=== PATIENT | male | born 1945 | race Caucasian/White ===

== ENCOUNTER 2018-04-29 12:48 | Inpatient (IN) | payer MEDICARE, OTHER ==
--- NOTE | 2018-04-29 15:15 | PCM.HP ---
H&P History of Present Illness - General Date of Service: 04/29/18 Source of Information: Patient - History of Present Illness Initial Comments - Free Text/Narative: 73-year-old male with a past medical history of metastatic castrate resistant prostate cancer, obesity, obstructive sleep apnea, hypertension, hyperlipidemia who was admitted with hypoxia and fever on 04/11/2018 been managed for PCP pneumonia with Bactrim and steroids. He was transferred out of the ICU on 2017. Patient was evaluated by infectious disease team, nephrology and oncology. Gradually his kidney function has improved. Patient was on Bactrim but that was discontinued. He was started on clindamycin and primaquine combination for PCP pneumonia. At this time the patient offers no new complaints. He feels well. Still weak. No significant cough at this time No fever exercise tolerance is improving. - Related Data Allergies/Adverse Reactions: Allergies Allergy/AdvReac Type Severity Reaction Status Date / Time No Known Allergies Allergy Verified 04/29/18 12:38 Home Medications: Home Meds Aspirin [Ecotrin] 1 tab PO BEDTIME 08/23/14 [History] Losartan [Cozaar] 100 mg PO DAILY 08/23/14 [History] Lovastatin [Mevacor] 20 mg PO BEDTIME 08/23/14 [History] amLODIPine Besylate [Amlodipine Besylate] 2 tab PO DAILY 08/23/14 [History] Leuprolide [Lupron Depot 4-Month] 30 mg IM .EVERY 4 MONTHS 08/24/14 [History] Multivitamin [Men's Multi-Vitamin] 1 each PO DAILY 08/24/14 [History] Ascorbic Acid 500 mg PO DAILY 04/29/18 [History] Clindamycin HCl 600 mg PO TID 04/29/18 [History] LORazepam 0.5 mg PO BEDTIME PRN 04/29/18 [History] Methylcellulose (with Sugar) [Citrucel] 1 dose PO DAILY PRN 04/29/18 [History] Non-Formulary Medication [NF Drug] 1 tab PO BID 04/29/18 [History] Non-Formulary Medication [NF Drug] 2 tab PO DAILY 04/29/18 [History] Omeprazole 20 mg PO BIDAC 04/29/18 [History] Ondansetron HCl [Zofran] 8 mg PO Q8HR PRN 04/29/18 [History] Prochlorperazine [Compazine] 10 mg PO Q6H PRN 04/29/18 [History] predniSONE [Prednisone] 20 mg PO DAILY 04/29/18 [History] Past Medical History Cardiovascular History: Reports: Hypertension Genitourinary History: Reports: Other (See Below) Other Genitourinary History: Prostate Surgery Musculoskeletal History: Reports: Arthritis, Other (See Below) Other Musculoskeletal History: spinal fusion in 1960 Psychiatric History: Reports: Anxiety Oncologic (Cancer) History: Reports: Metastatic, Prostate Other Oncologic History: last chemo was friday last week,. - Infectious Disease History Infectious Disease History: Reports: Chicken Pox, Measles, Mumps Social & Family History - Family History Family Medical History: Unobtainable - Tobacco Use Smoking Status *Q: Never Smoker Second Hand Smoke Exposure: No - Recreational Drug Use Recreational Drug Use: No H&P Review of Systems - Review of Systems: Review Of Systems: See Below General: Reports: Weakness, Decreased Appetite HEENT: Reports: No Symptoms Pulmonary: Reports: No Symptoms Cardiovascular: Reports: No Symptoms Gastrointestinal: Reports: No Symptoms Skin: Reports: No Symptoms Exam - Exam Exam: See Below - Vital Signs Vital Signs: Last Vital Signs Temp 36.2 C 04/29/18 14:40 Pulse 82 04/29/18 14:40 Resp 18 04/29/18 14:40 BP 99/62 04/29/18 14:40 Pulse Ox 93 L 04/29/18 14:40 Weight: 84.55 kg - Exam General: Alert, Oriented, 4 HEENT: PERRLA, Hearing Intact, Mucosa Moist & [place], Nares Patent, Normal Nasal Septum, Posterior Pharynx Clear, Conjunctiva Clear, EOMI, EACs Clear, TMs Clear Neck: Supple, Trachea Midline, 2 Lungs: Clear to Auscultation, Normal Respiratory Effort Cardiovascular: Regular Rate, Regular Rhythm Back Exam: Normal Inspection, Full Range of Motion, NT Extremities: Normal Inspection, Normal Range of Motion, Non-Tender, No Pedal Edema, Normal Capillary Refill Problem List Initiated/Reviewed/Updated: Yes Assessment/Plan Comment:: #EDGARDO, improving -Creatinine is down to 1.2 -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 Bactrim discontinued, substitute with Clindamycin + Primaquine -Nephrology consult appreciated #Hyponatremia, improving -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
[2018-04-29] MEDS ORDERED: Ondansetron 4 MG Tab.DIS PO PRN (15:17)
[2018-04-29] MEDS ORDERED: Acetaminophen 325 MG Tab PO PRN (15:17)
[2018-04-29] MEDS ORDERED: LORazepam 0.5 MG Tab PO PRN (15:21)
[2018-04-29] MEDS ORDERED: [UNRECOGNIZED DRUG - OTHER] PO PRN (15:21)
[2018-04-29] MEDS ORDERED: METHYLCELLULOSE PO PRN (15:21)
[2018-04-29] MEDS ORDERED: Prochlorperazine 5 MG Tab PO PRN (16:45)
[2018-04-29] MEDS: Omeprazole 20 MG Cap.CR PO SCH (17:25)
[2018-04-29] MEDS: Aspirin 81 MG Tab.EC PO SCH (22:47)
[2018-04-29] MEDS: Clindamycin HCl 150 MG Cap PO SCH (22:48)
[2018-04-29] MEDS: Heparin Sodium 5,000 Units/ML Vial SUBCUT SCH (22:48)
[2018-04-29] MEDS: Nystatin Topical Powder 30 GM Bottle TOP SCH (22:49)
[2018-04-30] MEDS: Omeprazole 20 MG Cap.CR PO SCH ×2 (05:45→17:16)
[2018-04-30] MEDS: Heparin Sodium 5,000 Units/ML Vial SUBCUT SCH ×3 (05:46→21:56)
[2018-04-30 07:13] LABS: CHLORIDE,CL 109 mmol/L (101-111); SODIUM,NA 137 mmol/L (135-145)
[2018-04-30] MEDS: Ascorbic Acid 500 MG Tab PO SCH (09:08)
[2018-04-30] MEDS: Losartan 50 MG Tab PO SCH (09:08)
[2018-04-30] MEDS: predniSONE 20 MG Tab PO SCH (09:08)
[2018-04-30] MEDS: amLODIPine 5 MG Tab PO SCH (09:09)
[2018-04-30] MEDS: Multivitamins,Therapeutic Tab PO SCH (09:09)
[2018-04-30] MEDS: Clindamycin HCl 150 MG Cap PO SCH ×3 (09:09→21:55)
[2018-04-30] MEDS: Nystatin Topical Powder 30 GM Bottle TOP SCH ×2 (09:11→22:00)
[2018-04-30] MEDS: [UNRECOGNIZED DRUG - REMARK] PO SCH (14:19)
[2018-04-30] MEDS: Aspirin 81 MG Tab.EC PO SCH (21:56)
[2018-04-30] MEDS: Zolpidem 5 MG Tab PO PRN (22:38)
[2018-05-01] MEDS: Heparin Sodium 5,000 Units/ML Vial SUBCUT SCH ×3 (06:37→21:43)
[2018-05-01] MEDS: Omeprazole 20 MG Cap.CR PO SCH ×2 (06:37→16:15)
[2018-05-01] MEDS: Nystatin Topical Powder 30 GM Bottle TOP SCH ×2 (08:43→21:44)
[2018-05-01] MEDS: Multivitamins,Therapeutic Tab PO SCH (08:43)
[2018-05-01] MEDS: [UNRECOGNIZED DRUG - REMARK] PO SCH (08:43)
[2018-05-01] MEDS: predniSONE 20 MG Tab PO SCH (08:43)
[2018-05-01] MEDS: amLODIPine 5 MG Tab PO SCH (08:44)
[2018-05-01] MEDS: Losartan 50 MG Tab PO SCH (08:44)
[2018-05-01] MEDS: Clindamycin HCl 150 MG Cap PO SCH ×3 (08:44→21:43)
[2018-05-01] MEDS: Ascorbic Acid 500 MG Tab PO SCH (08:44)
[2018-05-01] MEDS: Zolpidem 5 MG Tab PO PRN (21:43)
[2018-05-01] MEDS: Aspirin 81 MG Tab.EC PO SCH (21:43)
[2018-05-02] MEDS: Heparin Sodium 5,000 Units/ML Vial SUBCUT SCH ×3 (06:15→21:48)
[2018-05-02] MEDS: Omeprazole 20 MG Cap.CR PO SCH ×2 (06:15→16:27)
[2018-05-02] MEDS: amLODIPine 5 MG Tab PO SCH (09:44)
[2018-05-02] MEDS: Clindamycin HCl 150 MG Cap PO SCH ×3 (09:44→21:49)
[2018-05-02] MEDS: Losartan 50 MG Tab PO SCH (09:45)
[2018-05-02] MEDS: predniSONE 20 MG Tab PO SCH (09:45)
[2018-05-02] MEDS: Ascorbic Acid 500 MG Tab PO SCH (09:45)
[2018-05-02] MEDS: Multivitamins,Therapeutic Tab PO SCH (09:45)
[2018-05-02] MEDS: [UNRECOGNIZED DRUG - REMARK] PO SCH (09:46)
[2018-05-02] MEDS: Nystatin Topical Powder 30 GM Bottle TOP SCH ×2 (09:47→21:49)
[2018-05-02] MEDS: Aspirin 81 MG Tab.EC PO SCH (21:48)
[2018-05-02] MEDS: Zolpidem 5 MG Tab PO PRN (21:53)
[2018-05-02] MEDS: Calcium Carbonate 500 MG Tab.Chew PO PRN (22:44)
[2018-05-03] MEDS: Heparin Sodium 5,000 Units/ML Vial SUBCUT SCH ×3 (06:56→22:06)
[2018-05-03] MEDS: Omeprazole 20 MG Cap.CR PO SCH ×2 (06:56→16:34)
[2018-05-03] MEDS: Losartan 50 MG Tab PO SCH (09:08)
[2018-05-03] MEDS: Ascorbic Acid 500 MG Tab PO SCH (09:08)
[2018-05-03] MEDS: Clindamycin HCl 150 MG Cap PO SCH ×3 (09:08→22:06)
[2018-05-03] MEDS: Nystatin Topical Powder 30 GM Bottle TOP SCH ×2 (09:09→22:07)
[2018-05-03] MEDS: predniSONE 20 MG Tab PO SCH (09:09)
[2018-05-03] MEDS: Multivitamins,Therapeutic Tab PO SCH (09:09)
[2018-05-03] MEDS: amLODIPine 5 MG Tab PO SCH (09:09)
[2018-05-03] MEDS: [UNRECOGNIZED DRUG - REMARK] PO SCH (09:10)
--- NOTE | 2018-05-03 11:49 | PCM.PN ---
- General Info Date of Service: 05/03/18 Subjective Update: 73-year-old male with a past medical history of metastatic castrate resistant prostate cancer, obesity, obstructive sleep apnea, hypertension, hyperlipidemia who was admitted with hypoxia and fever on 04/11/2018 and managed for PCP pneumonia with Bactrim and steroids. He was transferred out of the ICU on 2017. Patient was evaluated by infectious disease team, nephrology and oncology. Gradually his kidney function has improved. Patient was on Bactrim but that was discontinued. He was started on clindamycin and primaquine combination for PCP pneumonia. [facility]. He feels well. Still on supplemental oxygen and being weaned down. He is on 3L now Denies cough, fever. He is coping with therapy and exercise tolerance is improving. Functional Status: Reports: Pain Controlled - Review of Systems General: Reports: No Symptoms HEENT: Reports: No Symptoms Pulmonary: Reports: No Symptoms Cardiovascular: Reports: No Symptoms Gastrointestinal: Reports: No Symptoms Genitourinary: Reports: No Symptoms Musculoskeletal: Reports: No Symptoms Skin: Reports: No Symptoms Neurological: Reports: No Symptoms Psychiatric: Reports: No Symptoms - Patient Data Vitals - Most Recent: Last Vital Signs Temp 98.6 F 05/03/18 08:36 Pulse 75 05/03/18 08:36 Resp 18 05/03/18 08:36 BP 108/71 05/03/18 09:09 Pulse Ox 94 L 05/03/18 08:36 Weight - Most Recent: 186 lb 6.4 oz I&O - Last 24 Hours: Intake & Output 05/02/18 05/03/18 05/03/18 22:59 06:59 14:59 Intake Total 360 240 Balance 360 240 Med Orders - Current: Current Medications Acetaminophen (Tylenol) 650 mg PO Q4H PRN PRN Reason: Pain (Mild 1-3)/fever Amlodipine Besylate (Norvasc) 10 mg PO DAILY [facility] Last Admin: 05/03/18 09:09 Dose: 10 mg Ascorbic Acid (Vitamin C) 500 mg PO DAILY [facility] Last Admin: 05/03/18 09:08 Dose: 500 mg Aspirin (Halfprin) 81 mg PO BEDTIME [facility] Last Admin: 05/02/18 21:48 Dose: 81 mg Calcium Carbonate/Glycine (Tums) 500 mg PO Q6H PRN PRN Reason: Heartburn Last Admin: 05/02/18 22:44 Dose: 500 mg Clindamycin HCl (Cleocin) 600 mg PO TID [facility] Last Admin: 05/03/18 09:08 Dose: 600 mg Heparin Sodium (Porcine) (Heparin Sodium) 5,000 units SUBCUT Q8HR [facility] Last Admin: 05/03/18 06:56 Dose: 5,000 units Lorazepam (Ativan) 0.5 mg PO BEDTIME PRN PRN Reason: Anxiety Losartan Potassium (Cozaar) 100 mg PO DAILY [facility] Last Admin: 05/03/18 09:08 Dose: 100 mg Methylcellulose (Citrucel) 500 mg PO BID [facility] Last Admin: 05/03/18 09:08 Dose: 500 mg Multivitamins (Thera) 1 each PO DAILY [facility] Last Admin: 05/03/18 09:09 Dose: 1 each Non-Formulary Medication (Lovastatin [Mevacor]) 20 mg PO BEDTIME [facility] Primaquine 26.3mg (= 15mg Base) Non- Form Med 2 each PO WITHBREAKFAST [facility] Stop: 05/09/18 08:01 Last Admin: 05/03/18 09:10 Dose: 2 each Nystatin (Nystop) 0 gm TOP BID [facility] Last Admin: 05/03/18 09:09 Dose: 1 applic Omeprazole (Omeprazole) 20 mg PO BIDAC [facility] Last Admin: 05/03/18 06:56 Dose: 20 mg Ondansetron HCl (Zofran Odt) 4 mg PO Q4H PRN PRN Reason: nausea, able to take PO Prednisone (Prednisone) 20 mg PO DAILY [facility] Stop: 05/08/18 09:01 Last Admin: 05/03/18 09:09 Dose: 20 mg Prednisone (Prednisone) 10 mg PO DAILY [facility] Stop: 05/15/18 09:01 Prednisone (Prednisone) 5 mg PO DAILY [facility] Prochlorperazine Maleate (Compazine) 10 mg PO Q6H PRN PRN Reason: Nausea Zolpidem Tartrate (Ambien) 5 mg PO BEDTIME PRN PRN Reason: Sleep Last Admin: 05/02/18 21:53 Dose: 5 mg Discontinued Medications Non-Formulary Medication (Methylcellulose (With Sugar) [Citrucel]) 1 dose PO DAILY PRN PRN Reason: Constipation - Exam Quality Assessment: Supplemental Oxygen, DVT Prophylaxis General: Alert, Oriented HEENT: Pupils Equal, Pupils Reactive, EOMI, Mucous Membr. Moist/[place] Neck: Supple Lungs: Clear to Auscultation, Normal Respiratory Effort Cardiovascular: Regular Rate, Regular Rhythm GI/Abdominal Exam: Normal Bowel Sounds, Soft, Non-Tender, No Organomegaly, No Distention, No Abnormal Bruit, No Mass, Pelvis Stable (Male) Exam: No Hernia, Normal Inspection, Normal Prostate, Circumcised Back Exam: Normal Inspection, Full Range of Motion Extremities: Normal Inspection, Normal Range of Motion, Non-Tender, No Pedal Edema, Normal Capillary Refill Skin: Warm, Dry, Intact Wound/Incisions: Healing Well Neurological: No New Focal Deficit Psy/Mental Status: Alert, Normal Affect, Normal Mood - Problem List Review Problem List Initiated/Reviewed/Updated: Yes - Plan Plan:: EDGARDO -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
[2018-05-03] MEDS: Aspirin 81 MG Tab.EC PO SCH (22:06)
[2018-05-03] MEDS: Zolpidem 5 MG Tab PO PRN (22:07)
[2018-05-04] MEDS: Heparin Sodium 5,000 Units/ML Vial SUBCUT SCH ×3 (06:05→22:15)
[2018-05-04] MEDS: Omeprazole 20 MG Cap.CR PO SCH ×2 (06:06→17:24)
[2018-05-04 07:03] LABS: ANION GAP 12.5; CHLORIDE,CL 110 mmol/L (101-111); SODIUM,NA 141 mmol/L (135-145)
[2018-05-04] MEDS: Losartan 50 MG Tab PO SCH (08:44)
[2018-05-04] MEDS: [UNRECOGNIZED DRUG - REMARK] PO SCH (08:44)
[2018-05-04] MEDS: Ascorbic Acid 500 MG Tab PO SCH (08:45)
[2018-05-04] MEDS: Multivitamins,Therapeutic Tab PO SCH (08:45)
[2018-05-04] MEDS: amLODIPine 5 MG Tab PO SCH (08:46)
[2018-05-04] MEDS: Nystatin Topical Powder 30 GM Bottle TOP SCH ×2 (08:46→22:15)
[2018-05-04] MEDS: predniSONE 20 MG Tab PO SCH (08:46)
[2018-05-04] MEDS: Clindamycin HCl 150 MG Cap PO SCH ×3 (09:28→22:02)
[2018-05-04] MEDS ORDERED: Potassium Chloride 20 MEQ in Premix Bag 1 BAG IV ONE (16:00)
[2018-05-04] MEDS ORDERED: Magnesium Sulfate/Water 2 GM in Premix Bag 1 BAG IV ONE (17:00)
[2018-05-04] MEDS: Phosphorus #1 250 MG Tab PO SCH ×2 (17:24→22:04)
[2018-05-04] MEDS: Sodium Chloride 0.9% 10 ML Syringe FLUSH PRN (21:56)
[2018-05-04] MEDS: Aspirin 81 MG Tab.EC PO SCH (22:03)
[2018-05-04] MEDS: Zolpidem 5 MG Tab PO PRN (22:04)
[2018-05-04] MEDS: Calcium Carbonate 500 MG Tab.Chew PO PRN (23:47)
[2018-05-05] MEDS: Heparin Sodium 5,000 Units/ML Vial SUBCUT SCH ×2 (05:10→13:49)
[2018-05-05] MEDS: Omeprazole 20 MG Cap.CR PO SCH ×2 (05:10→16:39)
[2018-05-05] MEDS: Clindamycin HCl 150 MG Cap PO SCH ×3 (08:40→21:06)
[2018-05-05] MEDS: Losartan 50 MG Tab PO SCH (08:41)
[2018-05-05] MEDS: Multivitamins,Therapeutic Tab PO SCH (08:42)
[2018-05-05] MEDS: amLODIPine 5 MG Tab PO SCH (08:42)
[2018-05-05] MEDS: Ascorbic Acid 500 MG Tab PO SCH (08:43)
[2018-05-05] MEDS: Phosphorus #1 250 MG Tab PO SCH ×4 (08:43→21:07)
[2018-05-05] MEDS: [UNRECOGNIZED DRUG - REMARK] PO SCH (08:44)
[2018-05-05] MEDS: predniSONE 20 MG Tab PO SCH (08:44)
[2018-05-05] MEDS: Nystatin Topical Powder 30 GM Bottle TOP SCH ×2 (08:45→21:07)
[2018-05-05 14:13] LABS: CHLORIDE,CL 110 mmol/L (101-111); SODIUM,NA 141 mmol/L (135-145)
[2018-05-05] MEDS ORDERED: Magnesium Sulfate/Water 2 GM in Premix Bag 1 BAG IV ONE (15:30)
[2018-05-05] MEDS: Aspirin 81 MG Tab.EC PO SCH (21:07)
[2018-05-05] MEDS: Calcium Carbonate 500 MG Tab.Chew PO PRN (21:07)
[2018-05-05] MEDS: Zolpidem 5 MG Tab PO PRN (21:07)
[2018-05-06] MEDS: [UNRECOGNIZED DRUG - REMARK] PO SCH ×6 (02:28→21:06)
[2018-05-06] MEDS: Omeprazole 20 MG Cap.CR PO SCH ×2 (06:46→17:27)
[2018-05-06 06:58] LABS: ANION GAP 12.2; CHLORIDE,CL 113 mmol/L (101-111); SODIUM,NA 144 mmol/L (135-145)
[2018-05-06] MEDS: Losartan 50 MG Tab PO SCH (08:18)
[2018-05-06] MEDS: Multivitamins,Therapeutic Tab PO SCH (08:19)
[2018-05-06] MEDS: predniSONE 20 MG Tab PO SCH (08:19)
[2018-05-06] MEDS: amLODIPine 5 MG Tab PO SCH (08:19)
[2018-05-06] MEDS: Phosphorus #1 250 MG Tab PO SCH ×4 (08:19→21:05)
[2018-05-06] MEDS: Clindamycin HCl 150 MG Cap PO SCH ×2 (08:19→13:56)
[2018-05-06] MEDS: Ascorbic Acid 500 MG Tab PO SCH (08:19)
[2018-05-06] MEDS: [UNRECOGNIZED DRUG - REMARK] PO SCH (08:20)
[2018-05-06] MEDS: Nystatin Topical Powder 30 GM Bottle TOP SCH ×2 (08:24→21:07)
[2018-05-06] MEDS ORDERED: Potassium Chloride 10 MEQ Tab.ER PO ONE (13:12)
[2018-05-06] MEDS ORDERED: Sodium Chloride 0.9% 1,000 ML IV SCH (13:15)
[2018-05-06] MEDS ORDERED: Furosemide 20 MG/2 ML VIAL IVPUSH ONE (18:00)
[2018-05-06] MEDS: Zolpidem 5 MG Tab PO PRN (21:04)
[2018-05-06] MEDS: Aspirin 81 MG Tab.EC PO SCH (21:05)
[2018-05-06] MEDS: Calcium Carbonate 500 MG Tab.Chew PO PRN (21:05)
[2018-05-07] MEDS: Omeprazole 20 MG Cap.CR PO SCH ×2 (06:53→16:41)
[2018-05-07] MEDS ORDERED: Potassium Chloride 10 MEQ Tab.ER PO SCH (08:00)
[2018-05-07] MEDS: Multivitamins,Therapeutic Tab PO SCH (09:14)
[2018-05-07] MEDS: Losartan 50 MG Tab PO SCH (09:14)
[2018-05-07] MEDS: Ascorbic Acid 500 MG Tab PO SCH (09:15)
[2018-05-07] MEDS: predniSONE 20 MG Tab PO SCH (09:15)
[2018-05-07] MEDS: amLODIPine 5 MG Tab PO SCH (09:15)
[2018-05-07] MEDS: Phosphorus #1 250 MG Tab PO SCH ×3 (09:15→16:40)
[2018-05-07] MEDS: Nystatin Topical Powder 30 GM Bottle TOP SCH (09:16)
--- NOTE | 2018-05-07 09:56 | PN ---
DATE: 05/07/2018 SUBJECTIVE: Mr. Ruano is a 73-year-old gentleman who was admitted to swing bed following admission in [place] for acute hypoxic respiratory failure. He was found to have Pneumocystis pneumonia. Following discharge from [place], he was admitted to [facility] for continuation of antibiotics for the PCP, Primaquine and clindamycin. He was seen by Lorenza Thompson, CLINICAL TRANSFORMATION SPECIALIST of Infectious Disease yesterday, and the antibiotics were stopped. He will follow up with Infectious Disease next week in [place]. Ms. Thompson raised the question about C. difficile. However, to our knowledge, Mr. Ruano has not had diarrhea, and we have ordered a stool, but we are unclear where the concern arose. Mr. Ruano was noted to be hypoxic with effort during his therapy sessions, and a walking desaturation study was performed on May 06. Results are as follows: 1. Resting saturation was 89% on 1 L/minute with a heart rate of 95. 2. 0.5 minutes of exercise, oxygen saturation was 88% on room air with a heart rate of 118. 3. Oxygen saturation was 85% at 1-minute exercise on room air with a heart rate of 116. 4. Oxygen saturation 84% at 1.5 minutes of exercise with heart rate on room air with heart rate of 118. 5. At that point, the study was terminated due to hypoxia and tachycardia, and he was placed on nasal oxygen at 2 L/minute. Oxygen levels improved to 90% with a heart rate of 106. 6. Postexercise measurements: 91% on 2 L of oxygen at 1 minute postexercise with heart rate of 107. 7. Oxygen saturation 90% on 2 L/minute at 5 minutes postexercise with a heart rate of 102. Mr. Ruano became short of breath very quickly with exercise and had a fair recovery. A copy of the results of the oxygen desaturation study were faxed to [facility] in [place]. An order was placed online in [email or web address] for home oxygen consisting of a concentrator or portable tanks. A [id number] encounter note was placed in his epic chart as well. We initially had planned for discharge today; however, he was noted to have a hemoglobin of 7.5. Given his hypoxia and dyspnea with exertion, it seemed logical to give him 1 unit PRBC to help him improve his oxygenation. This was explained to him, and he agreed. One unit of packed red blood cells was ordered (A positive, antibody negative). The blood was transfused late in the afternoon, and Mr. Ruano agreed to stay until this morning for discharge. Overnight, he remained hemodynamically stable. Oxygen saturations overnight were 94% to 93% on 2 L of oxygen. Vital signs were stable. He was afebrile. Repeat hemoglobin and hematocrit this morning were 8.8 and 27.5. Other lab work shows a potassium of 3.2 and a magnesium of 1.5. Morning lab results will be addressed by Dr. Cooper. Mr. Ruano was signed out to Dr. Cooper for followup. Discharge plan orders were started in [facility] and Dr. Cooper will discharge the patient to home. He has scheduled followup coming up with Infectious Disease, Apoorva Mohr, his usual provider, and Dr. Chaidez of Oncology. IMPRESSION: Hypoxic respiratory failure following Pneumocystis pneumonia. PLAN: The patient will be discharged home today. Antibiotic therapy has been completed. Supplemental oxygen has been ordered. He otherwise is doing well. Appetite is good. Vital signs are stable. He has had a lot of company and is eager to be discharged to home. [facility] /[id number] KARTHIKEYAN
[2018-05-07] MEDS ORDERED: Iopamidol 612 MG/ML 75 ML Bottle IVPUSH ONE (11:19)
[2018-05-07] MEDS: Sodium Chloride 0.9% 10 ML Syringe FLUSH PRN (13:51)
--- NOTE | 2018-05-07 15:05 | CT ---
CLINICAL HISTORY: 73-year-old hypertensive male with known adenocarcinoma prostate, hypoxemia, sepsis and "PCP pneumonia". SCAN TECHNIQUE: Volume acquisition of data from the chest (bony thorax, lungs and mediastinum) obtain ed during the intravenous administration 75 cc nonionic Isovue contrast (3 cc/s via injector) while t he patient was lying supine on the Siemens multislice scanner [facility]. All data archived in the PACS system for storage, reformatting axial/sagittal/coronal plane s and study. INTERPRETATION: Abnormal and although some improvement since 12 April 2018 exam (intubated patient) t estefanía's appearance suspicious for pneumonia/infarct and metastatic disease. 1. Osteoblastic lower cervical and upper thoracic vertebra suspicious for metastatic prostate cancer (bone) present 12 April 2018. 2. Right supraclavicular central venous line. 3. Extensive paratracheal/mediastinal lymphadenopathy appears increased in size and number since 2017 CT scan. 4. Scattered peripheral parenchymal nodular lesions primarily concentrated in both upper and left low er lobes. 5. Dense peripheral pleural-based alveolar consolidation with air bronchograms identified superior/po sterior segments of the right lower lobe. Chronic pneumonia and/or infarct are differential considera tions (cleared posterior segment left lower lobe). 6. Normal cardiac silhouette. No pericardial effusion, cephalization of flow, alveolar edema or pleur al effusion. Normal aorta. CONCLUSION: Multilobar pneumonia/infarcts. No signs of heart failure. NOTE: Blastic skeletal lesions and nodules in both lung sr suggest probability of metastatic dise ase.
[2018-05-07 16:04] VITALS: BP 113/63
[2018-05-09] MEDS ORDERED: predniSONE 10 MG Tab PO SCH (09:00)
[2018-05-16] MEDS ORDERED: predniSONE 5 MG Tab PO SCH (09:00)
== END 2018-05-07 17:55 | disposition home or self-care (01) | DRG 871 ==
LOC: DL.MS 12:48 → UNDOADMIN 12:48 → DL.MS 15:17
PROVIDERS: ADMIT Hospitalist; ATTEND Hospitalist
PROC: 30233N1 Transfusion of Nonautologous Red Blood Cells into Peripheral Vein, Percutaneous Approach (ICD-10-PCS; principal; 2018-05-06)
DX: A41.9 Sepsis, unspecified organism (principal); B59 Pneumocystosis; J96.91 Respiratory failure, unspecified with hypoxia; C79.9 Secondary malignant neoplasm of unspecified site; N17.9 Acute kidney failure, unspecified; N12 Tubulo-interstitial nephritis, not specified as acute or chronic; E22.2 Syndrome of inappropriate secretion of antidiuretic hormone; G47.33 Obstructive sleep apnea (adult) (pediatric); E66.9 Obesity, unspecified; Z68.31 Body mass index [BMI] 31.0-31.9, adult; I10 Essential (primary) hypertension; E78.5 Hyperlipidemia, unspecified; Z79.82 Long term (current) use of aspirin; Z79.899 Other long term (current) drug therapy; Z79.52 Long term (current) use of systemic steroids; Z85.46 Personal history of malignant neoplasm of prostate; M19.90 Unspecified osteoarthritis, unspecified site; T37.0X5A Adverse effect of sulfonamides, initial encounter; Z98.1 Arthrodesis status; Z92.21 Personal history of antineoplastic chemotherapy
CPT/HCPCS: 36415; 36430; 71260; 80048; 80053; 83735; 84100; 84132; 85014; 85018; 85025; 85027; 85651; 86140; 86850; 86900; 86901; 86920; 86922; 97110-GO; 97110-GP; 97116-GP; 97162-GP; 97166-GO; 97530-GO; 97535-GO; A9270-GY; J1642; J1644; J1940; J3475; J3480; J7050; P9016; Q9967